=== PATIENT | female | born 1985 | race American Indian/Alaskan Native ===

== ENCOUNTER 2017-02-08 18:02 | Emergency (ER) | payer OTHER ==
[2017-02-08 18:16] VITALS: RESP 18; TEMP 98.6; O2SAT 100; BMI 31.9
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
[2017-02-08 21:47] VITALS: BP 114/73; PULSE 83
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
== END 2017-02-08 21:48 | disposition home or self-care (01) ==
LOC: ED 18:02
DX: S16.1XXA Strain of muscle, fascia and tendon at neck level, initial encounter (principal); S46.912A Strain of unspecified muscle, fascia and tendon at shoulder and upper arm level, left arm, initial encounter; V49.49XA Driver injured in collision with other motor vehicles in traffic accident, initial encounter; Y92.410 Unspecified street and highway as the place of occurrence of the external cause; R51 Headache
CPT/HCPCS: 70450; 72125; 73030; 81025; 96372; 99285; J1885